=== PATIENT | female | born 1960 | race Caucasian/White ===

== ENCOUNTER → 2017-08-16 | Outpatient (CLI) | payer BC ==
--- NOTE | 2017-08-19 11:49 | MM ---
Reason for exam: screening (asymptomatic). Last mammogram was performed 2 years and 9 months ago. History: Patient is nulliparous. Family history of breast cancer in maternal grandmother. Physical Findings: A clinical breast exam by your physician is recommended on an annual basis and results should be correlated with mammographic findings. MG Screening Mammo w CAD Bilateral CC and MLO view(s) were taken. Prior study comparison: November 05, 2014, bilateral MG screening mammo w CAD. September 03, 2012, mammogram, performed at [facility]. The breast tissue is heterogeneously dense. This may lower the sensitivity of mammography. There is chronic nodularity in the left breast. There is no discrete abnormality. No significant changes when compared with prior studies. ASSESSMENT: Benign, BI-RAD 2 RECOMMENDATION: Routine screening mammogram of both breasts in 1 year.
== END | disposition home or self-care (01) ==
LOC: RADMAMWWP 10:16
PROVIDERS: ATTEND Family Medicine
DX: Z12.31 Encounter for screening mammogram for malignant neoplasm of breast (principal)
CPT/HCPCS: 77067

== ENCOUNTER → 2018-07-24 | Outpatient (CLI) | payer BC ==
--- NOTE | 2018-07-24 21:50 | MR ---
EXAMINATION TYPE: MR thoracic spine wo con DATE OF EXAM: 07/24/2018 COMPARISON: NONE HISTORY: lower back/thoracic pain x3 months TECHNIQUE: Multiplanar, multisequence imaging of thoracic spine is performed without contrast FINDINGS: Spinal cord shows normal course, caliber, and signal as it courses the thoracic spine. Alex tebral body heights and alignment are satisfactory. Posterior disc herniations are noted T3-T4 throug h the T11-T12 level on sagittal images effacing anterior thecal sac most prominent at T6-T7, T7-T8, a nd T10-T11 levels. Bone marrow signal intensity is preserved. There is mild multilevel anterior spurr ing seen. Review of the axial images shows no additional suspicious posterior disc herniation in the upper thor acic spine. Eccentric left paracentral disc protrusion T4-T5 level is confirmed on axial image 9 effacing the ant erolateral thecal sac. Prominent bilobed paracentral disc protrusion effaces bilateral anterolateral thecal sac axial image 17 at the T7-T8 level. Most prominent right paracentral/foraminal disc protrusion effaces the ventral thecal sac at T10-T11 level on axial image 8 and causes moderate right-sided neural foraminal narrowing at this level. Left foraminal disc herniation also seen causing mild left-sided neural foraminal narrowing. Axial images at T11-T12 level show mild facet degenerative changes bilaterally. Note is made of dependent 1.5 cm gallstone in gallbladder axial image 3. No suspicious incidental fin dings identified in visualized thorax. IMPRESSION: Multilevel posterior disc herniations with most prominent disc herniation noted T10-T11 l evel.
== END | disposition home or self-care (01) ==
LOC: RADMRIMAIN 19:30
PROVIDERS: ATTEND Nurse Practitioner Family
DX: M51.24 Other intervertebral disc displacement, thoracic region (principal)
CPT/HCPCS: 72146

== ENCOUNTER → 2018-07-28 | Outpatient (CLI) | payer BC ==
--- NOTE | 2018-07-28 09:11 | MR ---
EXAMINATION TYPE: MR lumbar spine wo con DATE OF EXAM: 07/28/2018 COMPARISON: 07/24/2018 MRI of the thoracic spine HISTORY: Low back pain TECHNIQUE: Multiplanar, multisequence images of the lumbar spine were acquired. FINDINGS: The lumbar spine vertebral bodies maintain normal vertebral body heights and alignment. The re is a very mild levoscoliotic curvature of the lumbar spine. Sacral nerve root Tarlov cysts are inc identally seen. Conus medullaris is unremarkable terminating at T2. There is a mild retrolisthesis of L5 on S1 and grade 1 anterolisthesis of L4 on L5. Multilevel disc desiccation is identified. Pulsation artifact from the abdominal aorta is seen overlying the right mid kidney. Cholelithiasis is incidentally noted. Paraspinal muscles are unremarkable. L1-L2: There is a broad-based disc bulge without spinal canal stenosis nor neural foraminal narrowing . L2-L3: There is a large broad-based disc bulge and facet arthropathy resulting in mild to moderate bi lateral neural foraminal narrowing and mild spinal canal stenosis. L3-L4: There is a broad-based disc bulge with facet arthropathy resulting in mild bilateral neural fo raminal narrowing. No spinal canal stenosis. L4-L5: There is grade 1 anterolisthesis with disc uncovering and ligamentum flavum buckling in combin ation with facet arthropathy resulting in mild bilateral neural foraminal narrowing and moderate spin al canal stenosis. L5-S1: There is a very small central disc herniation superimposed upon a broad-based disc bulge that in combination with facet arthropathy results in moderate left and [id number] right neural fora yasmin narrowing and mild spinal canal stenosis. IMPRESSION: 1. Small central disc herniation at L5-S1 that in combination with degenerative changes create mild s madhu canal stenosis and neural foraminal narrowing as described above. 2. Grade 1 anterolisthesis of L4 on L5 with degenerative disc disease and ligamentum flavum buckling create moderate spinal canal stenosis at L4-L5. 3. Large broad-based disc bulge at L2-L3 contributing to mild to moderate bilateral neural foraminal narrowing and mild spinal canal stenosis. 4. Mild levoscoliosis of the lumbar spine.
== END ==
LOC: RADMRIMAIN 08:13
PROVIDERS: ATTEND Family Medicine
DX: M48.061 Spinal stenosis, lumbar region without neurogenic claudication (principal); M99.73 Connective tissue and disc stenosis of intervertebral foramina of lumbar region; M43.16 Spondylolisthesis, lumbar region; M51.27 Other intervertebral disc displacement, lumbosacral region; M51.36 Other intervertebral disc degeneration, lumbar region; M41.86 Other forms of scoliosis, lumbar region
CPT/HCPCS: 72148

== ENCOUNTER → 2018-08-18 | Outpatient (CLI) | payer BC ==
--- NOTE | 2018-08-23 11:31 | MM ---
Reason for exam: screening (asymptomatic). Last mammogram was performed 1 year ago. History: Patient is nulliparous. Family history of breast cancer in maternal grandmother. MG Screening Mammo w CAD Bilateral CC, MLO, and XCCL view(s) were taken. Prior study comparison: August 16, 2017, bilateral MG screening mammo w CAD. November 05, 2014, bilateral MG screening mammo w CAD. The breast tissue is heterogeneously dense. This may lower the sensitivity of mammography. Bilateral chronic nodularity. No discrete abnormality. ASSESSMENT: Negative, BI-RAD 1 RECOMMENDATION: Routine screening mammogram of both breasts in 1 year.
== END | disposition home or self-care (01) ==
LOC: RADMAMWWP 08:51
PROVIDERS: ATTEND Family Medicine
DX: Z12.31 Encounter for screening mammogram for malignant neoplasm of breast (principal)
CPT/HCPCS: 77067

== ENCOUNTER → 2019-02-17 | Outpatient (CLI) | payer BC ==
[2019-02-17 12:23] VITALS: BP 177/84; PULSE 106; RESP 18
--- NOTE | 2019-02-18 13:54 | P.PAINCN ---
History of Present Illness - Reason for Consult Consult date: 02/17/19 - History of Present Illness This is a 58-year-old female patient referred for low back pain radiating to left groin, left posterior thigh, front of left cedillo and top of left foot and occasionally to right buttock. Pain began in May 2018 when she was lifting a heavy object and twisting simultaneously. She felt a sharp pain at that time. Since then, the pain has been constant, it worsens throughout the day. She has not been to physical therapy, however does exercises on her own. She reports numbness and tingling in left foot, denies weakness. Pain is worse with walking, sitting, standing and better with laying down. Pain ranges from 2-10 out of 10. Current medications include gabapentin 300 mg 3 times a day, Flexeril at night and Robaxin twice a day. She is expressing some mild side effects from these medications in the form of fatigue. Patient also denies new-onset weakness, bowel/bladder incontinence, or any other signs or symptoms of cauda equina syndrome. There are no signs of acute intoxication, and no indications of medication diversion or overuse. She has not had injections in the past. In addition to above, 13-point review of systems is also negative for chest pain, shortness of breath, changes in vision, changes in hearing, new onset weakness, abdominal pain, diarrhea, extreme fatigue, malaise, fever, skin changes, homicidal or suicidal ideation, or bowel or bladder incontinence. Physical exam: Vital Signs: Reviewed in EMR GENERAL: Well appearing, in no acute distress PSYCH: Mood and affect is appropriate. Awake, alert, and oriented SKIN: Skin color, texture, turgor normal, no rashes or lesions HEENT: Normocephalic, atraumatic. EOM intact CV: No pedal edema RESP: Respirations are unlabored, no audible wheezing GI: Abdomen non-distended MUSCULOSKELETAL: Bilateral upper and lower extremity strength is normal and symmetric. No atrophy or tone abnormalities are noted. Lumbar spine: Straight leg raising in the sitting position is negative for rad icular pain. Tenderness to palpation over the lumbar spine and paraspinous muscles, left greater than right. Negative for pain with facet loading and back extension/rotation. Normal range of motion without pain reproduction Buttocks: No pain to palpation over the PSIS, Richard test is Patient does not present with any sacroiliac joint tenderness or any physical exam signs of sacroiliac arthropathy. Extremities: Peripheral joint ROM is full and pain free without obvious instability or laxity in all four extremities. No edema or skin discolorations noted. Gait: Gait is normal NEUR: Bilateral upper and lower extremity coordination and muscle stretch reflexes are physiologic and symmetric. Negative clonus. Loss of sensation to light touch noted over left foot. Cranial nerves are grossly intact. Imaging: MRI thoracic spine done on 07/24/2018 at [facility] shows multilevel posterior disc herniations with most prominent disc herniation at T10-11 MRI lumbar spine done on 07/28/2018 at [facility] shows multilevel disc bulges resulting in mild to moderate spinal canal stenosis at multiple levels as well as neural foraminal stenosis worst at L2-L3, L5-S1. At L5-S1 neurof oraminal stenosis is worse on the left side. Assessment: 1. Lumbar radiculopathy 2. Lumbar degenerative disc disease 3. Lumbar spondylosis without myelopathy Plan: 1. Explanation: Opioid and psychological risk scores were reviewed. Diagnoses, prognoses, and multiple treatment options including but not limited to physical therapy, interventional therapies, adjuvant medical therapies, narcotic medication therapies, and surgery were discussed with the patient and all questions were answered to the patient's satisfaction. 2. Opioid agreement: None 3. Counseling: The patient was counseled extensively on BODY MASS INDEX, EXERCISE. Specifically, the patient was instructed regarding the importance of weight control, and exercise in the context of both chronic pain and overall health. 4. Procedures: We'll schedule left sided transforaminal epidural steroid injection at L2-3 and L5-S1. 5. Consultations: None 6. Investigations: MRI T and L-spine reviewed 7. Medications: Continue with medications prescribed by PCP 8. Disposition: For procedure Past Medical History Past Medical History: Asthma, GERD/Reflux, Hypertension, Osteoarthritis (OA), Sleep Apnea/CPAP/BIPAP Additional Past Medical History / Comment(s): uses c-pap machine, back pain that radiates to both legs and left foot. History of Any Multi-Drug Resistant Organisms: None Reported Past Surgical History: Hysterectomy, Orthopedic Surgery, Tonsillectomy Additional Past Surgical History / Comment(s): Edgard carpal tunnel , radial surgery edgard, right ulna, right rotator cuff., left knee meniscus. Past Anesthesia/Blood Transfusion Reactions: Postoperative Nausea & Vomiting (PONV) Past Psychological History: Anxiety, Depression Smoking Status: Former smoker Past Alcohol Use History: Occasional Additional Past Alcohol Use History / Comment(s): quit 3 months ago , smoked for on and off since 20 yrs old, quit for 10 years. Past Drug Use History: None Reported - Past Family History Mother Family Medical History: Cancer Additional Family Medical History / Comment(s): esophageal cancer Medications and Allergies Home Medications Medication Instructions Recorded Confirmed Type Losartan Potassium 100 mg PO DAILY 11/19/14 02/17/19 History Magnesium Oxide [Mag-Ox] 250 mg PO BID 11/19/14 02/17/19 History Montelukast [Singulair] 10 mg PO HS 11/19/14 02/17/19 History Albuterol Inhaler [Ventolin Hfa 1 - 2 puff INHALATION RT-Q6H PRN 02/16/19 02/17/19 History Inhaler] Cholecalciferol (Vitamin D3) 2,000 unit PO DAILY 02/16/19 02/17/19 History [Vitamin D3] Cyclobenzaprine [Flexeril] 10 mg PO HS 02/16/19 02/17/19 History DULoxetine HCL [Cymbalta] 30 mg PO BID 02/16/19 02/17/19 History Gabapentin [Neurontin] 300 mg PO TID 02/16/19 02/17/19 History Methocarbamol [Robaxin] 750 mg PO BID 02/16/19 02/17/19 History Multivitamins, Thera [Multivitamin 1 tab PO DAILY 02/16/19 02/17/19 History (formulary)] Naproxen Sodium [Aleve] 440 mg PO BID PRN 02/16/19 02/17/19 History Symbicort Inhaler 2 puff INHALATION BID 02/16/19 02/17/19 History Allergies Allergy/AdvReac Type Severity Reaction Status Date / Time nickel Allergy Severe SORES- Verified 02/16/19 13:56 TURN SKIN RAW lisinopril Allergy Unknown Cough Verified 02/16/19 13:56 PQRS Measure Charge Sheet Measure #130: Documentation of Current Meds in Medical Chart: Patient's medications documented in chart Measure #226: Tobacco Use: Screen & Cessation Intervention: Pt not a tobacco user Measure #111: Pneumonia Vaccination: Pneumococcal vaccine administered or previously received Measure #47: Advance Care Plan: Advance care planning discussed & documented, pt chose/unable to give Measure #412: Opioid Treatment Agreement: No documentation of signed opioid treatment agreement Measure #317: Preventitive Care & Scrn High Bld Press & F/U: Pre-hypertensive or hypertensive BP documented, pt will f/u with PCP Measure #128: Body Mass Index (BMI) Screening & Follow-up: BMI documented ABOVE normal parameters - f/u documented Measure #131: Pain Assessment & Follow-up: Pain positive & plan documented, Follow-up scheduled Measure #431: Unhealthy Alcohol Use Preventative Care & Scrn: Patient not identified as an unhealthy alcohol user PQRS Narrative: Smoking Status Former smoker Blood Pressure 177/84 Pain Intensity [Back] 6 Scale Used Numeric (1 - 10) Hx Alcohol Use (MH) No Home Medications: Ambulatory Orders Losartan Potassium 100 mg PO DAILY 11/19/14 Magnesium Oxide [Mag-Ox] 250 mg PO BID 11/19/14 Montelukast [Singulair] 10 mg PO HS 11/19/14 Albuterol Inhaler [Ventolin Hfa Inhaler] 1 - 2 puff INHALATION RT-Q6H PRN 02/16/19 Cholecalciferol (Vitamin D3) [Vitamin D3] 2,000 unit PO DAILY 02/16/19 Cyclobenzaprine [Flexeril] 10 mg PO HS 02/16/19 DULoxetine HCL [Cymbalta] 30 mg PO BID 02/16/19 Gabapentin [Neurontin] 300 mg PO TID 02/16/19 Methocarbamol [Robaxin] 750 mg PO BID 02/16/19 Multivitamins, Thera [Multivitamin (formulary)] 1 tab PO DAILY 02/16/19 Naproxen Sodium [Aleve] 440 mg PO BID PRN 02/16/19 Symbicort Inhaler 2 puff INHALATION BID 02/16/19
== END | disposition home or self-care (01) ==
LOC: PNWHC3 11:54
PROVIDERS: ATTEND Anesthesiology
DX: M51.16 Intervertebral disc disorders with radiculopathy, lumbar region (principal); M47.26 Other spondylosis with radiculopathy, lumbar region; K21.9 Gastro-esophageal reflux disease without esophagitis; J45.909 Unspecified asthma, uncomplicated; I10 Essential (primary) hypertension; M19.90 Unspecified osteoarthritis, unspecified site; Z87.891 Personal history of nicotine dependence; Z79.51 Long term (current) use of inhaled steroids; Z79.899 Other long term (current) drug therapy; Z88.8 Allergy status to other drugs, medicaments and biological substances
CPT/HCPCS: 99211

== ENCOUNTER 2019-03-16 05:57 | Day surgery (SDC) | payer BC ==
[2019-03-12 09:22] VITALS: BMI 41.5
[~2019-03-16 05:57] MED LIST: LACTATED RINGERS 1,000 ML IV SCH
[2019-03-16 06:24] VITALS: TEMP 97.5
[2019-03-16] MEDS ORDERED: LIDOCAINE 1% 20 ML VIAL (10MG/ML) FOR IV START INTRADERMA ONE (06:30)
--- NOTE | 2019-03-16 07:18 | P.PCN ---
Date of Procedure: 03/16/19 Procedure(s) Performed: DESCRIPTION OF PROCEDURE(S): PREOPERATIVE DIAGNOSIS: Lumbar radicular pain POSTOPERATIVE DIAGNOSIS: Lumbar radicular pain PROCEDURE 1. Transforaminal epidural steroid injection under fluoroscopic guidance left L2-L3 2. Lumbar epidurogram ANESTHESIA: Local with 1% lidocaine 3 ml ; moderate sedation with Versed 1 mg and fentanyl 50 micrograms. PROCEDURE INDICATION: The patient with low back pain and radicular symptoms unresponsive to conservative treatment. PROCEDURE DESCRIPTION / TECHNIQUE: The patient was seen and identified in the preoperative area. Risks, benefits, complications, and alternatives were discussed with the patient. The patient agreed to proceed with the procedure and signed the consent. IV was started, and vital signs were stable. Patient was taken to the OR and time out was completed. The patient was placed in the prone position on procedure table and a pillow was placed under the abdomen to reduce lumbar lordosis. The lumbosacral area was prepped and draped in the usual sterile fashion. Vital signs were closely monitored during the procedure. Conscious sedation was used. Using oblique fluoroscopy, the chin of the ``Long dog and the skin and deeper tissues just below was localized with 1% lidocaine. Subsequently, a 22- gauge 5-inch spinal needle was advanced under a tunneled view fluoroscopic guidance just underneath the chin of the ``Long dog . Under lateral fluoroscopy, the needle was then advanced to the posterior border of the foramen. After negative aspiration of CSF and blood and with no paresthesias, 1 mL of Omnipaque-240 contrast dye was injected and there was no evidence of intravascular injection. The injectate solution was then delivered containing 10 mg of dexamethasone and 1 cc of 1% PF. The needle was withdrawn intact. At the end of the procedure, skin was cleansed, and bandages were applied. COMPLICATIONS: None COMMENTS: DISPOSITION / PLANS: The patient was placed in a supine position and transferred to the recovery area in a stable condition for observation. There was no evide nce of lower extremity motor or sensory deficit after the procedure. Patient was discharged from the recovery room after meeting discharge criteria. Home discharge instructions were given to the patient by the staff.
[2019-03-16] MEDS ORDERED: IV FLUID CONTINUATION 1,000 ML IV ONE (07:19)
[2019-03-16 07:29] VITALS: RESP 16
[2019-03-16 07:35] VITALS: BP 129/82; PULSE 91
--- NOTE | 2019-03-16 08:09 | FL ---
Fluoroscopy HISTORY: Pain 13 seconds fluoroscopy time supplied to the referring clinician. 4 intraoperative C-arm images docum ent the procedure. See dictated report from anesthesia.
== END 2019-03-16 07:53 | disposition home or self-care (01) ==
LOC: ORPAIN 05:57
PROVIDERS: ATTEND Student in an Organized Health Care Education/Training Program
DX: M54.16 Radiculopathy, lumbar region (principal); R19.4 Change in bowel habit; Z88.8 Allergy status to other drugs, medicaments and biological substances
CPT/HCPCS: 64483; J2250; J1100; J3010

== ENCOUNTER 2019-04-06 09:09 | Day surgery (SDC) | payer BC ==
[2019-04-03 09:18] VITALS: BMI 41.5
[2019-04-06 10:15] VITALS: TEMP 97.8
[2019-04-06] MEDS ORDERED: LIDOCAINE 1% 20 ML VIAL (10MG/ML) FOR IV START INTRADERMA ONE (10:19)
[2019-04-06] MEDS ORDERED: IV FLUID CONTINUATION 850 ML IV ONE (11:20)
--- NOTE | 2019-04-06 11:21 | P.PCN ---
Date of Procedure: 04/06/19 Procedure(s) Performed: PREOPERATIVE DIAGNOSIS: Lumbar radicular pain POSTOPERATIVE DIAGNOSIS: Lumbar radicular pain PROCEDURE 1. Transforaminal epidural steroid injection under fluoroscopic guidance left L2-L3 2. Lumbar epidurogram ANESTHESIA: Local with 1% lidocaine 3 ml ; moderate sedation with Versed 1 mg and fentanyl 50 micrograms. PROCEDURE INDICATION: The patient with low back pain and radicular symptoms unresponsive to conservative treatment. PROCEDURE DESCRIPTION / TECHNIQUE: The patient was seen and identified in the preoperative area. Risks, benefits, complications, and alternatives were discussed with the patient. The patient agreed to proceed with the procedure and signed the consent. IV was started, and vital signs were stable. Patient was taken to the OR and time out was completed. The patient was placed in the prone position on procedure table and a pillow was placed under the abdomen to reduce lumbar lordosis. The lumbosacral area was prepped and draped in the usual sterile fashion. Vital signs were closely monitored during the procedure. Conscious sedation was used. Using oblique fluoroscopy, the chin of the ``Long dog and the skin and deeper tissues just below was localized with 1% lidocaine. Subsequently, a 22- gauge 5-inch spinal needle was advanced under a tunneled view fluoroscopic guidance just underneath the chin of the ``Long dog . Under lateral fluoroscopy, the needle was then advanced to the posterior border of the foramen. After negative aspiration of CSF and blood and with no paresthesias, 1 mL of Omnipaque-240 contrast dye was injected and there was no evidence of intravascular injection. The injectate solution was then delivered containing 80 mg Depo-Medrol , and 1 cc of 1% PF. The needle was withdrawn intact. At the end of the procedure, skin was cleansed, and bandages were applied. COMPLICATIONS: None COMMENTS: DISPOSITION / PLANS: The patient was placed in a supine position and transferred to the recovery area in a stable condition for observation. There was no evidence of lower extremity motor or sensory deficit after the procedure. Patient was discharged from the recovery room after meeting discharge criteria. Home discharge instructions were given to the patient by the staff.
[2019-04-06 11:36] VITALS: RESP 18
[2019-04-06 11:37] VITALS: BP 151/76; PULSE 89
--- NOTE | 2019-04-06 11:37 | FL ---
EXAMINATION TYPE: FL guided pain mgmt statistic DATE OF EXAM: 04/06/2019 HISTORY: Flouroscopy time 5 seconds of fluoroscopy provided. IMPRESSION: 1. Fluoroscopy time.
== END 2019-04-06 11:50 | disposition home or self-care (01) ==
LOC: ORPAIN 09:09
PROVIDERS: ATTEND Specialist
DX: M51.16 Intervertebral disc disorders with radiculopathy, lumbar region (principal); Z88.8 Allergy status to other drugs, medicaments and biological substances; Z91.048 Other nonmedicinal substance allergy status; Z90.710 Acquired absence of both cervix and uterus
CPT/HCPCS: 81025; 64483; J2250; J1030; J3010; Q9966

== ENCOUNTER → 2019-04-20 | Outpatient (CLI) | payer BC ==
[2019-04-20 13:00] VITALS: BP 162/86; RESP 18
--- NOTE | 2019-04-20 13:31 | P.PAINPG ---
Subjective Progress Note Date: 04/20/19 This is a follow-up visit for this 58 years old female with a chronic history of severe low back pain with radiation to the left lower extremity , she is very close with lumbar radiculopathy and lumbar degenerative disc disease and lumbar spondylosis, recently we have done a left-sided transforaminal epidural steroid injection L2-3, and that helped her left lower extremity pain and she continued to have low back pain which is increased with any activity, she denies any motor or sensory deficit she denies any fever or night sweats and she continued to use, Neurontin 400 mg 3 times a day Robaxin 750 mg twice a, she denies any side effects from the medication, as any excessive drowsiness or sleepiness and she is getting prescription refills from her primary care Objective - Vital Signs Vital signs: Vital Signs Temp Pulse Resp 18 04/20/19 12:53 BP 162/86 04/20/19 12:53 Pulse Ox 94 L 04/20/19 12:53 - Exam Physical Examinations : -Constitutiona : Cooperative , not in acute distress . -HEENT : nech : supple , no Lymphadenopathy , normal thyroid size . eyes : no ptosis , no icterus, no photophobia . - neurologic : Cranial nerve II to XII intact , no focal neurological deffecit . -psychatric : alert , oriented X 3 , appropriate affect , intact judgment and insight . -Lymphatic : no Lymphadenopathy . - musculoskeltal : Lumber spine moter stegnth lower extremities ,thigh and legs 5/5 Right side , 5/5 Left side deep tendon reflexes : normal Knee Jerk , normal ankle Jerk positive lumber facet Loading Test Range of motion of the lumbar spine Flexion 30 degrees, extension 10 degrees strait leg raising test = negative bilaterally Fabere test = negative bilaterally mild tenderness over the Sacroiliac joint on the R and L sides MRI of the lumbar spine done 07/24/2018 at the [facility] showed multilevel lumbar degenerative disc disease and L2 to S1 lumbar facet arthropathy and foraminal stenosis Assessment and Plan Plan: Assessment and plan=1-lumbar radiculopathy 2-lumbar spondylosis with lumbar facet arthropathy without radiculopathy. 3-lumbar degenerative disc disease. Patient had good pain relief in the left lower extremity after transforaminal epidural steroid injection, currently she is complaining of severe low back pain in the lumbar area which is mostly secondary to facetogenic component, patient will be good candidate for diagnostic medial branch block lumbar area L2 , L3, L4, L5 , (2 target the facet joint at L3-4/L4 5/L5-S1 ) , and benefits positive then we will proceed with RFA Time with Patient: Less than 30 PQRS Measure Charge Sheet Measure #130: Documentation of Current Meds in Medical Chart: Patient's medications documented in chart Measure #226: Tobacco Use: Screen & Cessation Intervention: Pt screened for tobacco use AND intervention given Measure #111: Pneumonia Vaccination: Pneumococcal vaccine administered or previ ously received Measure #47: Advance Care Plan: Advance care planning discussed & documented, pt chose/unable to give Measure #412: Opioid Treatment Agreement: No documentation of signed opioid treatment agreement Measure #408: Opioid Therapy Follow-up Evaluation: Patient had NO f/u eval minimum every 3 months during opioid therapy Measure #317: Preventitive Care & Scrn High Bld Press & F/U: Pre-hypertensive or hypertensive BP documented, pt will f/u with PCP Measure #128: Body Mass Index (BMI) Screening & Follow-up: BMI documented ABOVE normal parameters - f/u documented Measure #131: Pain Assessment & Follow-up: Pain positive & plan documented, Follow-up scheduled Measure #431: Unhealthy Alcohol Use Preventative Care & Scrn: Patient not identified as an unhealthy alcohol user PQRS Narrative: Smoking Status Former smoker Blood Pressure 162/86 Pain Intensity [Lower Back] 5 Scale Used Numeric (1 - 10) Hx Alcohol Use (MH) Yes Home Medications: Ambulatory Orders Losartan Potassium 100 mg PO DAILY 11/19/14 Montelukast [Singulair] 10 mg PO HS 11/19/14 Albuterol Inhaler [Ventolin Hfa Inhaler] 1 - 2 puff INHALATION Q6HR PRN 02/16/19 Budesonide/Formoterol Fumarate [Symbicort 80-4.5 Mcg Inhaler] 1 puff INHALATION BID 02/16/19 Cholecalciferol (Vitamin D3) [Vitamin D3] 2,000 unit PO DAILY 02/16/19 Cyclobenzaprine [Flexeril] 10 mg PO HS 02/16/19 DULoxetine HCL [Cymbalta] 30 mg PO BID 02/16/19 Methocarbamol [Robaxin] 750 mg PO BID 02/16/19 Multivitamins, Thera [Multivitamin (formulary)] 1 tab PO DAILY 02/16/19 Acetaminophen [Tylenol] 650 mg PO QID PRN 04/03/19 Gabapentin [Neurontin] 400 mg PO TID 04/03/19 Magnesium Tartrate 100 mg PO BID 04/03/19 Controlled Substance Measures - Controlled Substance Measures Is patient prescribed a controlled substance at discharge?: No
== END ==
LOC: PNWHC3 11:44
PROVIDERS: ATTEND Specialist
DX: M51.16 Intervertebral disc disorders with radiculopathy, lumbar region (principal); M47.26 Other spondylosis with radiculopathy, lumbar region; M46.96 Unspecified inflammatory spondylopathy, lumbar region; Z87.891 Personal history of nicotine dependence; Z79.899 Other long term (current) drug therapy
CPT/HCPCS: 99211

== ENCOUNTER 2019-05-07 05:59 | Day surgery (SDC) | payer BC ==
[2019-05-05 15:09] VITALS: BMI 43.2
[2019-05-07] MEDS ORDERED: LIDOCAINE 1% 20 ML VIAL (10MG/ML) FOR IV START INTRADERMA ONE (06:28)
[2019-05-07 06:35] VITALS: RESP 16; TEMP 97.9
--- NOTE | 2019-05-07 07:31 | P.PCN ---
Date of Procedure: 05/07/19 Procedure(s) Performed: PREOPERATIVE DIAGNOSIS : Lumbar spondylosis with Facet Arthropathy without myelopathy POSTOPERATIVE DIAGNOSIS: same PROCEDURE: Diagnostic lumbar medial branch block with fluoroscopy at bilateral medial branch of L2, L3, L4, and dorsal rami of 5 ANESTHESIA: Local anesthetic; moderate sedation with 2 mg of midazolam Surgeon: Genesis Jewell MD PROCEDURE INDICATION: By spondylosis PROCEDURE DESCRIPTION: The patient was seen and identified in the preop holding area , risks and benefits and possible complications of the procedure and alternative were discussed with the patient, and the patient agreed to proceed with the procedure and signed the consent IV was started and vital signs monitored during the procedure and fluoroscopy was used to maximize the benefit and accuracy of the needle placement, and sedation was given to decrease patient anxiety, patient was taken to the procedure room and placed in prone position vital signs monitored in the back prepped. Under strict sterile technique using a right oblique fluoroscopy ,the junction of the transverse process and the superior articulating process of the bilateral L2-L3, L3- 4 , L4- 5, and L5-S1 vertebra which corresponding to the fluoroscopy image of the eye of the Long dog on the block side for the medial branches and subsequently , after local infiltration of skin and subcutaneous tissues with lidocaine 1% one mL at each level ,then one 25-gauge Quincke-type needles was placed at the junction of the base of the transverse process and the superior articular process at the appropriate level, and the needle was advanced until the periosteum contacted, needle placement confirmed with AP and oblique view and after appropriate needle placement confirmed, and after negative aspiration, 0.5 mL of Ropivicaine 0.5% was injected at each level and the needle subsequently removed. Images were saved to radiology. At the end of the procedure and the needles removed and a bandage applied after the skin was cleaned the cleaning solution patient taken to recovery room in stable condition and monitors in the recovery room for 20-30 minutes and discharged home in stable condition after discharge criteria met and patient will have repeat diagnostic medial branch block, if she had good relief with this one. EBL: Minimal COMPLICATION: None.
[2019-05-07] MEDS ORDERED: IV FLUID CONTINUATION 1,000 ML IV ONE (07:34)
[2019-05-07 07:44] VITALS: BP 128/71; PULSE 93
--- NOTE | 2019-05-07 08:48 | FL ---
EXAMINATION TYPE: FL guided pain mgmt statistic DATE OF EXAM: 05/07/2019 FLUOROSCOPY Fluoroscopy time of 17 seconds was used during pain management procedure. 6 image/s document/s the p rocedure.
== END 2019-05-07 08:00 | disposition home or self-care (01) ==
LOC: ORPAIN 05:59
PROVIDERS: ATTEND Student in an Organized Health Care Education/Training Program
DX: M47.26 Other spondylosis with radiculopathy, lumbar region (principal); M51.16 Intervertebral disc disorders with radiculopathy, lumbar region; M46.97 Unspecified inflammatory spondylopathy, lumbosacral region; M48.07 Spinal stenosis, lumbosacral region; Z79.899 Other long term (current) drug therapy; Z88.8 Allergy status to other drugs, medicaments and biological substances; Z91.048 Other nonmedicinal substance allergy status; Z90.710 Acquired absence of both cervix and uterus; Z87.891 Personal history of nicotine dependence
CPT/HCPCS: 64493; 64494; 64495; J2250; 99152

== ENCOUNTER → 2019-06-01 | Outpatient (CLI) | payer BC ==
--- NOTE | 2019-06-01 15:45 | MR ---
EXAMINATION TYPE: MR knee RT wo con DATE OF EXAM: 06/01/2019 COMPARISON: Right knee pain HISTORY: pain in unspecified knee, pain in rt knee TECHNIQUE: Multiplanar, multisequence imaging of the right knee is performed without IV contrast. FINDINGS: MEDIAL MENISCUS: There is a radial tear of the body of the medial meniscus and underlying bone marrow edema with full-thickness cartilaginous defect of the weightbearing surface of the medial compartmen t. The abnormal signal from the radial tear does extend into the anterior horn of the meniscus and po sterior horn with additional horizontal component suspected. The root of the meniscus is intact. Ther e is 5 mm of meniscal extrusion. LATERAL MENISCUS: Anterior and posterior horns are intact without tear. Slight increased signal is se en of the anterior and posterior horns indicative of myxoid degeneration. CRUCIATE LIGAMENTS: There is a partial thickness tear of the anterior cruciate ligament as there is s ignal alteration throughout and thickening of the fibers. Posterior cruciate ligament is intact. COLLATERAL LIGAMENTS: The medial collateral ligament and lateral collateral ligament complex are inta ct there is high signal seen superficial and deep to the medial collateral ligament. Medial collatera l ligament however appears intact. EXTENSOR MECHANISM: Visualized quadriceps and patellar tendons are intact. EFFUSION: Physiologic amount of suprapatellar joint effusion. POPLITEAL CYST: No popliteal/perez cyst. TRICOMPARTMENT SPACES: Protuberant tricompartmental osteophytes are seen. Subcortical cyst is present of the lateral femoral condyle. CARTILAGE: Full-thickness cartilaginous defect of the weightbearing surface of the medial femoral con dyle measuring 2.1 cm with opposing surface full-thickness defect of the tibial plateau measuring 1.5 cm. Underlying bone marrow edema is seen. Heterogenous signal throughout the lateral compartment car tilage is seen with partial-thickness defect of the posterior weightbearing surface measuring 0.4 cm. Diffusely heterogenous cartilage is seen in the patellofemoral compartment with focal fissure of the patellar apex. No underlying bone marrow edema. BONE MARROW SIGNAL: Loose joint body is seen anterior to the anterior cruciate ligament measuring 1 c m. OTHER: Nonspecific subcutaneous edema is present. IMPRESSION: 1. Complex tear of the medial meniscus with dominant radial component of the meniscal body and horizo ntal component also seen extending into the anterior and posterior horns. Associated 5 mm of meniscal extrusion. 2. Severe chondrosis with full-thickness cartilaginous defect of the weightbearing surface of the med ial femoral condyle (2.1 cm and opposing surface of the tibial plateau (1.5 cm) resulting in bone-on- bone articulation and underlying bone marrow edema of both the medial femoral condyle and medial tibi al plateau. Mild chondrosis within the lateral compartment and patellofemoral compartment. 3. Mid grade partial thickness tear of the anterior cruciate ligament. 4. Moderate tricompartmental arthropathy. 5. Findings suggesting low-grade MCL sprain and MCL bursitis. 6. 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
== END | disposition home or self-care (01) ==
LOC: RADMRIMAIN 11:05
PROVIDERS: ATTEND Nurse Practitioner Adult Health
DX: S83.231A Complex tear of medial meniscus, current injury, right knee, initial encounter (principal); S83.511A Sprain of anterior cruciate ligament of right knee, initial encounter; M17.11 Unilateral primary osteoarthritis, right knee

== ENCOUNTER → 2019-06-22 | Outpatient (CLI) | payer BC ==
[2019-06-22 13:55] VITALS: BP 186/84; PULSE 99; RESP 16
--- NOTE | 2019-06-22 14:23 | P.PAINPG ---
Subjective Progress Note Date: 06/22/19 This is a follow-up visit for this 59 years old female with a chronic history of severe low back pain she is diagnosed with with lumbar radiculopathy and lumbar degenerative disc disease and lumbar spondylosis, status post a classic medial branch block lumbar area bilaterally at the L2, L3, L4, L5, she reported that her pain was 5/10 before the block degrees to 1/10 after the block, and she gets similar results after the second diagnostic block , she denies any motor or sensory deficit she denies any fever or night sweats and she continued to use, Neurontin 400 mg 3 times a day Robaxin 750 mg twice a, she denies any side effects from the medication, as any excessive drowsiness or sleepiness and she is getting prescription refills from her primary care Objective - Vital Signs Vital signs: Vital Signs Temp Pulse 99 06/22/19 13:49 Resp 16 06/22/19 13:49 BP 186/84 06/22/19 13:49 Pulse Ox 94 L 06/22/19 13:49 - Exam -Constitutiona : Cooperative , not in acute distress . -HEENT : nech : supple , no Lymphadenopathy , normal thyroid size . eyes : no ptosis , no icterus, no p hotophobia . - neurologic : Cranial nerve II to XII intact , no focal neurological deffecit . -psychatric : alert , oriented X 3 , appropriate affect , intact judgment and insight . -Lymphatic : no Lymphadenopathy . - musculoskeltal : Lumber spine moter stegnth lower extremities ,thigh and legs 5/5 Right side , 5/5 Left side deep tendon reflexes : normal Knee Jerk , normal ankle Jerk positive lumber facet Loading Test Range of motion of the lumbar spine Flexion 30 degrees, extension 10 degrees strait leg raising test = negative bilaterally Fabere test = negative bilaterally mild tenderness over the Sacroiliac joint on the R and L sides MRI of the lumbar spine done 07/24/2018 at the [facility] showed multilevel lumbar degenerative disc disease and L2 to S1 lumbar facet arthropathy and foraminal stenosis Assessment and Plan Plan: Assessment and plan= lumbar radiculopathy. Lumbar degenerative disc disease. Lumbar spondylosis with lumbar facet arthropathy. Patient had good result after diagnostic medial branch block lumbar area x2 , she had significant improvement in her low back pain after The diagnostic block, pain dropped from 5/10- to 0-1/10 , for this is an she will be good candidate to have RFA of the medial branch Lumbar area she will be scheduled to have left side L2, L3, L4, L5 first then later on we will do the right side, patient should continue her medication as prescribed by her primary care Time with Patient: Less than 30 PQRS Measure Charge Sheet Measure #130: Documentation of Current Meds in Medical Chart: Patient's medications documented in chart Measure #226: Tobacco Use: Screen & Cessation Intervention: Pt not a tobacco user Measure #111: Pneumonia Vaccination: Pneumococcal vaccine administered or previously received Measure #47: Advance Care Plan: Advance care planning discussed & documented, pt chose/unable to give Measure #412: Opioid Treatment Agreement: No documentation of signed opioid treatment agreement Measure #408: Opioid Therapy Follow-up Evaluation: Patient had NO f/u eval minimum every 3 months during opioid therapy Measure #317: Preventitive Care & Scrn High Bld Press & F/U: Pre-hypertensive or hypertensive BP documented, pt will f/u with PCP Measure #128: Body Mass Index (BMI) Screening & Follow-up: BMI documented ABOVE normal parameters - f/u documented Measure #131: Pain Assessment & Follow-up: Pain positive & plan documented, Follow-up scheduled Measure #431: Unhealthy Alcohol Use Preventative Care & Scrn: Patient not identified as an unhealthy alcohol user PQRS Narrative: Smoking Status Former smoker Blood Pressure 186/84 Pain Intensity [Right Leg] 5 Pain Intensity [Left Buttock] 5 Pain Intensity [Left Leg] 5 Pain Intensity [Lower Back] 5 Scale Used Numeric (1 - 10) Hx Alcohol Use (MH) Yes Home Medications: Ambulatory Orders Losartan Potassium 100 mg PO DAILY 11/19/14 Montelukast [Singulair] 10 mg PO HS 11/19/14 Albuterol Inhaler [Ventolin Hfa Inhaler] 1 - 2 puff INHALATION Q6HR PRN 02/16/19 Budesonide/Formoterol Fumarate [Symbicort 80-4.5 Mcg Inhaler] 1 puff INHALATION BID 02/16/19 Cholecalciferol (Vitamin D3) [Vitamin D3] 2,000 unit PO DAILY 02/16/19 Cyclobenzaprine [Flexeril] 10 mg PO HS 02/16/19 DULoxetine HCL [Cymbalta] 30 mg PO BID 02/16/19 Methocarbamol [Robaxin] 750 mg PO BID 02/16/19 Multivitamins, Thera [Multivitamin (formulary)] 1 tab PO DAILY 02/16/19 Gabapentin [Neurontin] 400 mg PO TID 04/03/19 Magnesium Tartrate 250 mg PO BID 04/03/19 Meloxicam 7.5 mg PO DAILY 06/22/19 Controlled Substance Measures - Controlled Substance Measures Is patient prescribed a controlled substance at discharge?: No
== END ==
LOC: PNWHC3 13:36
PROVIDERS: ATTEND Specialist
DX: M51.16 Intervertebral disc disorders with radiculopathy, lumbar region (principal); M47.26 Other spondylosis with radiculopathy, lumbar region; M46.96 Unspecified inflammatory spondylopathy, lumbar region; Z87.891 Personal history of nicotine dependence; Z79.899 Other long term (current) drug therapy; Z79.1 Long term (current) use of non-steroidal anti-inflammatories (NSAID)
CPT/HCPCS: 99211

== ENCOUNTER 2019-07-13 06:58 | Day surgery (SDC) | payer BC ==
[2019-07-09 15:40] VITALS: BMI 43.2
[2019-07-13 07:23] VITALS: RESP 20; TEMP 97.5
[2019-07-13] MEDS ORDERED: LIDOCAINE 1% 20 ML VIAL (10MG/ML) FOR IV START INTRADERMA ONE (07:30)
[2019-07-13] MEDS ORDERED: LACTATED RINGERS 1,000 ML IV ONE (08:57)
[2019-07-13 09:19] VITALS: BP 130/81; PULSE 86
--- NOTE | 2019-07-13 10:05 | FL ---
Fluoroscopy HISTORY: Pain 9 seconds fluoroscopy time supplied to the referring clinician. 6 intraoperative C-arm images docume nt the procedure. See dictated report from anesthesia.
--- NOTE | 2019-07-13 15:25 | P.PCN ---
Date of Procedure: 07/13/19 Procedure(s) Performed: PREOPERATIVE DIAGNOSIS: Lumbar Spondylosis POSTOPERATIVE DIAGNOSIS: Same PROCEDURES: Radiofrequency ablation of the L2, L3, L4, L5 medial branches with fluoroscopic guidance on the left side SURGEON: Vasu Covarrubias MD. ANESTHESIA: Lidocaine 1% 5 mL, Moderate sedation with intravenous Versed and fentanyl, sedation time 21 minutes EBL: Minimal Fluoroscopy was used for the procedure and images were saved in the radiology portion of the chart. PROCEDURE INDICATION: The patient with low back pain secondary to lumbar facet arthropathy who had more than 50% relief of pain with previous diagnostic lumbar medial branch block X2. PROCEDURE DESCRIPTION / TECHNIQUE: The patient was seen and identified in the preoperative area. Risks, benefits, complications, including but not limited to risk of infection ,bleeding , allergic reactions to the medications and incomplete pain relief , and alternatives were discussed with the patient, the patient agreed to proceed with the procedure and signed the consent. IV was started. The operative site was marked. Patient was taken to the OR and time out was completed. The patient was placed in the prone position on the procedure table. The lumbar area was prepped and draped in the usual sterile fashion. . Vital signs were closely monitored during the procedure .IV sedation was used during the procedure to decrease patients anxiety. Using AP and then oblique fluoroscopy, the "eye of the Long dog" corresponding to the connection between the superior and transverse articular processes of the L3, L4 and L5 as well as the sacral ala were identified, marked, and localized with 1% lidocaine. Subsequently, an 18 guage 150-mm radiofrequency cannula with a 10-mm active tip was advanced guided by fluoroscopy to the identified target at each site. Needle positioning was confirmed on AP, oblique and lateral fluoroscopy. Motor testing at 2.5 Hz was done with paraspinal muscle stimulation only, and no radicular symptoms down the legs. Then 1 mL of 4% lidocaine was injected in each site. Radiofrequency thermocoagulation at 80 degrees celsius for 90 seconds was then performed. [place] were removed. Sterile dressings were applied. COMPLICATIONS: No acute complications. DISPOSITION / PLANS: The patient was placed in a supine position and transferred to the recovery area in a stable condition for observation and was discharged from the recovery room after meeting discharge criteria. Home discharge instructions given to the patient by the staff. The patient will follow up in clinic in 4 weeks.
== END 2019-07-13 09:27 | disposition home or self-care (01) ==
LOC: ORPAIN 06:58
PROVIDERS: ATTEND Anesthesiology
DX: G89.29 Other chronic pain (principal); M47.26 Other spondylosis with radiculopathy, lumbar region; M51.16 Intervertebral disc disorders with radiculopathy, lumbar region; Z88.8 Allergy status to other drugs, medicaments and biological substances; Z91.048 Other nonmedicinal substance allergy status; Z87.891 Personal history of nicotine dependence; Z79.51 Long term (current) use of inhaled steroids; Z79.899 Other long term (current) drug therapy
CPT/HCPCS: 64635; 64636 ×2; J2250; J3010; 99152

== ENCOUNTER → 2020-01-19 | Outpatient (CLI) | payer BC ==
[2020-01-19 13:39] VITALS: BP 175/84; PULSE 98; RESP 20
--- NOTE | 2020-01-19 14:17 | P.PAINPG ---
Subjective Progress Note Date: 01/19/20 This is a follow-up visit for this 59 years old female with a chronic history of severe low back pain she is diagnosed with with lumbar radiculopathy and lumbar degenerative disc disease and lumbar spondylosis, status post Diagnostic medial branch block lumbar area bilaterally at the L2, L3, L4, L5, she reported that her pain was 5/10 before the block degrees to 1/10 after the block, and she gets similar results after the second diagnostic block , June 2019 and we have done RFA of the left second medial branch lumbar area, and she gets excellent pain relief, and if she is complaining of severe low back pain, mostly axial in nature and is bilaterally, she denies any motor or sensory deficit she denies any fever or night sweats and she continued to use, Neurontin 400 mg 3 times a day Robaxin 750 mg twice a, she denies any side effects from the medication, as any excessive drowsiness or sleepiness and she is getting prescription refills from her primary care Objective - Vital Signs Vital signs: Vital Signs Temp Pulse 98 01/19/20 13:35 Resp 20 01/19/20 13:35 BP 175/84 01/19/20 13:35 Pulse Ox 96 01/19/20 13:35 - Exam -Constitutiona : Cooperative , not in acute distress . -HEENT : nech : supple , no Lymphadenopathy , normal thyroid size . eyes : no ptosis , no icterus, no photophobia . - neurologic : Cranial nerve II to XII intact , no focal neurological deffecit . -psychatric : alert , oriented X 3 , appropriate affect , intact judgment and insight . -Lymphatic : no Lymphadenopathy . - musculoskeltal : Lumber spine moter stegnth lower extremities ,thigh and legs 5/5 Right side , 5/5 Left side deep tendon reflexes : normal Knee Jerk , normal ankle Jerk positive lumber facet Loading Test Range of motion of the lumbar spine Flexion 30 degrees, extension 10 degrees strait leg raising test = negative bilaterally Fabere test = negative bilaterally mild tenderness over the Sacroiliac joint on the R and L sides MRI of the lumbar spine done 07/24/2018 at the [facility] showed multilevel lumbar degenerative disc disease and L2 to S1 lumbar facet arthropathy and foraminal stenosis Assessment and Plan Plan: Assessment and plan= lumbar radiculopathy. Lumbar degenerative disc disease. Lumbar spondylosis with lumbar facet arthropathy. Patient had good result after diagnostic medial branch block lumbar area x2 , she had significant improvement in her low back pain after The diagnostic block, pain dropped from 5/10- to 0-1/10 , for this is an she will be good candidate to have RFA of the medial branch Lumbar area bilaterally at L2, L3, L4, L5 patient should continue her medications as prescribed by the primary PQRS Measure Charge Sheet Measure #130: Documentation of Current Meds in Medical Chart: Patient's medications documented in chart Measure #226: Tobacco Use: Screen & Cessation Intervention: Pt screened for tobacco use AND intervention given Measure #111: Pneumonia Vaccination: Pneumococcal vaccine administered or previously received Measure #47: Advance Care Plan: Advance care planning discussed & documented, pt chose/unable to give Measure #412: Opioid Treatment Agreement: No documentation of signed opioid treatment agreement Measure #408: Opioid Therapy Follow-up Evaluation: Patient had NO f/u eval minimum every 3 months during opioid therapy Measure #317: Preventitive Care & Scrn High Bld Press & F/U: Pre-hypertensive or hypertensive BP documented, pt will f/u with PCP Measure #128: Body Mass Index (BMI) Screening & Follow-up: BMI documented ABOVE normal parameters - f/u documented Measure #131: Pain Assessment & Follow-up: Pain positive & plan documented, Follow-up scheduled Measure #431: Unhealthy Alcohol Use Preventative Care & Scrn: Patient not identified as an unhealthy alcohol user PQRS Narrative: Smoking Status Former smoker Blood Pressure 175/84 Pain Intensity [Lower] 5 Scale Used Numeric (1 - 10) Hx Alcohol Use (MH) Yes Home Medications: Ambulatory Orders Losartan Potassium 100 mg PO DAILY 11/19/14 Montelukast [Singulair] 10 mg PO HS 11/19/14 Albuterol Inhaler (Mhu) [Ventolin Hfa Inhaler] 1 - 2 puff INHALATION Q6HR PRN 02/16/19 Budesonide/Formoterol Fumarate [Symbicort 80-4.5 Mcg Inhaler] 1 puff INHALATION BID 02/16/19 Cholecalciferol (Vitamin D3) [Vitamin D3] 2,000 unit PO DAILY 02/16/19 Cyclobenzaprine [Flexeril] 10 mg PO HS 02/16/19 DULoxetine HCL [Cymbalta] 90 mg PO HS 02/16/19 Multivitamins, Thera [Multivitamin (formulary)] 1 tab PO DAILY 02/16/19 Gabapentin [Neurontin] 600 mg PO TID 04/03/19 Magnesium Oxide [Mag-Ox] 250 mg PO BID 04/03/19 Meloxicam 15 mg PO DAILY 06/22/19 Hydrochlorothiazide 50 mg PO DAILY 01/14/20 amLODIPine [Norvasc] 10 mg PO DAILY 01/14/20 Controlled Substance Measures - Controlled Substance Measures Is patient prescribed a controlled substance at discharge?: No
== END | disposition home or self-care (01) ==
LOC: PNWHC3 12:57
PROVIDERS: ATTEND Specialist
DX: G89.29 Other chronic pain (principal); M51.16 Intervertebral disc disorders with radiculopathy, lumbar region; M47.26 Other spondylosis with radiculopathy, lumbar region; M46.96 Unspecified inflammatory spondylopathy, lumbar region; Z87.891 Personal history of nicotine dependence; Z79.1 Long term (current) use of non-steroidal anti-inflammatories (NSAID); Z79.899 Other long term (current) drug therapy
CPT/HCPCS: 99211

== ENCOUNTER → 2020-01-25 | Outpatient (CLI) | payer BC ==
--- NOTE | 2020-01-26 08:27 | MM ---
Reason for exam: screening (asymptomatic). Last mammogram was performed 1 year and 5 months ago. History: Patient is postmenopausal and is nulliparous. Family history of breast cancer in maternal grandmother. Took hormonal contraceptives for 6 months. Physical Findings: A clinical breast exam by your physician is recommended on an annual basis and results should be correlated with mammographic findings. MG Screening Mammo w CAD Bilateral CC and MLO view(s) were taken. Prior study comparison: August 18, 2018, bilateral MG screening mammo w CAD. August 16, 2017, bilateral MG screening mammo w CAD. There are scattered fibroglandular densities. There is no discrete abnormality. No significant changes when compared with prior studies. ASSESSMENT: Negative, BI-RAD 1 RECOMMENDATION: Routine screening mammogram of both breasts in 1 year.
== END | disposition home or self-care (01) ==
LOC: RADMAMWWP 07:20
PROVIDERS: ATTEND Family Medicine
DX: Z12.31 Encounter for screening mammogram for malignant neoplasm of breast (principal)
CPT/HCPCS: 77067

== ENCOUNTER → 2020-01-28 | Outpatient (CLI) | payer BC ==
[~2020-01-28] MED LIST changes: -LACTATED RINGERS 1,000 ML IV SCH; +REGADENOSON 0.4 MG/5 ML SYRINGE IV ONE
--- NOTE | 2020-01-28 14:22 | NM ---
EXAMINATION TYPE: NM stress lexiscan cardiolite DATE OF EXAM: 01/28/2020 COMPARISON: NONE HISTORY: Essential hypertension TECHNIQUE: After the intravenous administration of 10.1 mCi Tc 99m Sestamibi - Cardiolite resting SP ECT images acquired 45 minutes post injection. The patient received 0.4mg Lexiscan, 24.9 mCi Tc 99m Sestamibi - Stress images obtained [address] injection FINDINGS: Review of stress and rest SPECT images demonstrates decreased uptake along the lateral wall left vent ricle on stress as compared to rest images into the cardiac apex. Decreased uptake in the rest images only along the anteroseptal left ventricle is of questionable clinical significance and may be techn ical. Gated analysis shows normal wall motion with an estimated left ventricular ejection fraction of 57 %. IMPRESSION: Pharmacologically induced left ventricular myocardial ischemia. Report relayed to the office of Nurse Cuong telephonically at the time of interpretation of the exam.
--- NOTE | 2020-01-28 21:53 | EST ---
EXERCISE STRESS AGE: 59 SEX: Female HT: 5 feet 5 inches WT: 280 pounds PROTOCOL: Lexiscan Cardiolite STAGE: DURATION OF EXERCISE: HEART RATE REST: 81 BLOOD PRESSURE REST: 108/69 MAXIMUM HEART RATE ACHIEVED: 106 MAXIMUM BLOOD PRESSURE: 114/61 85% MPHR: 139 100% MPHR: 167 METS: INDICATIONS: Hypertension. Chest pain. CLINICAL INFORMATION: STRESS DATA: Heart rate is 81, pressure 105/69 mmHg. Baseline EKG showed sinus mechanism. The patient was given 0.4 mg of Lexiscan over 15 seconds per protocol. Max heart rate was 106 beats per minute and maximum pressure was 114/61 mmHg. Clinically the patient did not have any symptoms of chest pain or discomfort and the EKG did not show any significant ST or T-wave abnormalities concerning for ischemia. CONCLUSION: 1. Nondiagnostic electrocardiogram stress testing in response to Lexiscan. 2. Please follow up on the Cardiolite portion on separate report from Radiology Department. MMODL / IJN: [id number] /
--- NOTE | 2020-02-03 16:00 | ECHOF ---
Referral Reason:I10 essential hypertention MEASUREMENTS -------- HEIGHT: 165.1 cm WEIGHT: 127.0 kg BP: RVIDd: 3.3 cm (< 3.3) IVSd: 1.1 cm (0.6 - 1.1) LVIDd: 4.2 cm (3.9 - 5.3) LVPWd: 1.5 cm (0.6 - 1.1) IVSs: 1.5 cm LVIDs: 3.0 cm LVPWs: 1.8 cm LA Diam: 4.2 cm (2.7 - 3.8) LAESV Index (A-L): 30.38 ml/m Ao Diam: 2.7 cm (2.0 - 3.7) AV Cusp: 2.1 cm (1.5 - 2.6) LA Diam: 3.8 cm (2.7 - 3.8) MV E Osorio: 0.79 m/s MV DecT: 232 ms MV A Osorio: 1.07 m/s MV E/A Ratio: 0.74 RAP: 5.00 mmHg RVSP: 16.53 mmHg FINDINGS -------- Sinus rhythm. Morbid Obesity This was a techncally difficult study with suboptimal views, , Lumason utilized for enhancement of im ages. LV size, wall thickness and systolic function are normal, with an EF greater than 55%. The right ventricle is normal in size. The left atrium is mildly dilated. LA is midly dilated 29-33ml/m2. The right atrial size is normal. 5.0mg OF Lumason UTLIZED: 2 OR MORE WALL SEGMENTS NOT VISUALIZED. The aortic valve was not well visualized. Mild mitral annular calcification present. Mild mitral regurgitation is present. Mild tricuspid regurgitation present. Right ventricular systolic pressure is normal at < 35 mmHg. There is no evidence of pulmonary hypertension. The pulmonic valve was not well visualized. There is no pericardial effusion. CONCLUSIONS -------- 1. Sinus rhythm. 2. Morbid Obesity 3. This was a techncally difficult study with suboptimal views, , Lumason utilized for enhancement of images. 4. LV size, wall thickness and systolic function are normal, with an EF greater than 55%. 5. The right ventricle is normal in size. 6. The left atrium is mildly dilated. 7. LA is midly dilated 29-33ml/m2. 8. The right atrial size is normal. 9. 5.0mg OF Lumason UTLIZED: 2 OR MORE WALL SEGMENTS NOT VISUALIZED. 10. The aortic valve was not well visualized. 11. Mild mitral annular calcification present. 12. Mild mitral regurgitation is present. 13. Mild tricuspid regurgitation present. 14. Right ventricular systolic pressure is normal at < 35 mmHg. 15. There is no evidence of pulmonary hypertension. 16. The pulmonic valve was not well visualized. 17. There is no pericardial effusion. IT OPERATIONS ANALYST: Zainab Almonte RDCS
== END | disposition home or self-care (01) ==
LOC: RADNMMAIN 08:30
PROVIDERS: ATTEND Nurse Practitioner Adult Health
DX: I25.9 Chronic ischemic heart disease, unspecified (principal)
CPT/HCPCS: 93017; 93306; 78452; A9500; J2785; Q9950

== ENCOUNTER 2020-02-12 07:15 | Day surgery (SDC) | payer BC ==
[2020-02-10 14:40] VITALS: BMI 46.5
[~2020-02-12 07:15] MED LIST changes: +ALPRAZolam 0.25 MG TAB PO PRN; +ALPRAZolam 0.5 MG TAB PO PRN; +ASPIRIN 325 MG TAB PO STA; +NITROGLYCERIN SL TABS 0.4 MG TAB SUBLINGUAL PRN; -REGADENOSON 0.4 MG/5 ML SYRINGE IV ONE; +SODIUM CHLORIDE 0.9% 1,000 ML in EMPTY BAG 1 BAG IV ONE
[2020-02-12 08:01] LABS: Glucose,Whole Blood 98 mg/dL (75-99)
[2020-02-12 08:03] VITALS: TEMP 98.1
[2020-02-12 08:28] LABS: Basophils # (A) 0.1 k/uL (0-0.2); Basophils % (A) 1 %; Eosinophils # (A) 0.2 k/uL (0-0.7); Eosinophils % (A) 2 %; HCT 40.8 % (34.0-46.0); HGB 13.9 gm/dL (11.4-16.0); Lymphocytes # (A) 1.6 k/uL (1.0-4.8); Lymphocytes % (A) 17 %; MCH 31.4 pg (25.0-35.0); MCHC 34.1 g/dL (31.0-37.0); MCV 92.2 fL (80.0-100.0); Mean Platelet Volume 7.1; Monocytes # (A) 0.7 k/uL (0-1.0); Monocytes % (A) 8 %; Neutrophils # (A) 6.5 k/uL (1.3-7.7); Neutrophils % (A) 70 %; Platelet Count 251 k/uL (150-450); RBC 4.43 m/uL (3.80-5.40); RDW 14.4 % (11.5-15.5); WBC 9.4 k/uL (3.8-10.6)
[2020-02-12] MEDS ORDERED: LIDOCAINE 1% INJ 10MG/ML (20 ML MDV) ONE (08:28)
[2020-02-12 08:32] LABS: African American GFR (CKD) >90 (>60 ml/min/1.73 sqM); Anion Gap 5 mmol/L; Blood Urea Nitrogen 15 mg/dL (7-17); Carbon Dioxide 28 mmol/L (22-30); Chloride 104 mmol/L (98-107); Glucose 98 mg/dL (74-99); Non-African American GFR(CKD) >90 (>60 ml/min/1.73 sqM); Potassium 3.7 mmol/L (3.5-5.1); Sodium 137 mmol/L (137-145)
[2020-02-12] MEDS ORDERED: VERAPAMIL 2.5 MG/ML 2 ML AMP ONE (08:35)
[2020-02-12] MEDS ORDERED: HEPARIN SODIUM 1,000 UN/ML (10ML VL) ONE (08:36)
[2020-02-12] MEDS ORDERED: MIDAZOLAM 2 MG/2 ML VIAL IVP ONE (08:49)
[2020-02-12] MEDS ORDERED: LIDOCAINE 1% INJ 10MG/ML (20 ML MDV) SQ ONE (08:51)
[2020-02-12] MEDS: VERAPAMIL SYRINGE (5 MG/10 ML) INTRAARTER ONE ×2 (08:54→09:01)
[2020-02-12] MEDS ORDERED: HEPARIN SODIUM 1,000 UN/ML (10ML VL) IV ONE (08:55)
[2020-02-12] MEDS ORDERED: IOPAMIDOL-370 100ML BTL INJ ONE (09:01)
[2020-02-12] MEDS ORDERED: RX INFO: IV CONTRAST WAS GIVEN 1 EACH MISC MISCELLANE PRN (09:06)
[2020-02-12] MEDS ORDERED: SODIUM CHLORIDE 0.9% 1,000 ML IV SCH (09:15)
[2020-02-12 13:11] VITALS: BP 131/60; PULSE 77; RESP 16
--- NOTE | 2020-02-12 13:47 | CC ---
CARDIAC CATHETERIZATION REPORT DATE OF SERVICE: 02/12/2020 PERFORMING PHYSICIAN: Kwaku Martinez MD. PROCEDURE PERFORMED: 1. Selective right and left coronary angiogram. 2. Left heart catheterization. INDICATION: This is a 59-year-old female patient with hypertension, who was experiencing chest discomfort and underwent myocardial perfusion imaging stress test and that revealed reversible defect. Because of that, a heart catheterization was advised. APPROACH: Right radial artery. COMPLICATION: None. LEVEL OF SEDATION: Moderate with sedation length of 13 minutes. PROCEDURE DESCRIPTION: After obtaining an informed consent, the patient was brought to the cardiac pathology laboratory technologist. The right radial artery was cannulated using micropuncture technique. The micropuncture wire advanced easily and then I placed a 5-Scottish sheath at the right radial artery. After that, I did selective right and left coronary angiogram using JR4 and JL3.5 catheters. The left heart catheterization was performed using 5-Scottish pigtail catheter. The procedure was completed without any complication. CORONARY ANGIOGRAM: 1. The right coronary artery is a medium caliber vessel. It is a nondominant vessel and appeared to be angiographically normal. 2. The left main is angiographically normal and it bifurcates into LCX and LAD. 3. The LCX is a large caliber vessel, it is a dominant vessel. The LCX is angiographically normal in the midportion and gives rise into an OM1 which seems to be angiographically normal and distally bifurcates into PDA and PLV branches. Both appeared to be angiographically normal. 4. The LAD is a large caliber vessel. It is angiographically normal. The LAD appeared to be angiographically normal. In the proximal portion, it gives rise into a large diagonal branch which seems to be normal. HEMODYNAMICS: The LVEDP was 16 mmHg without significant gradient across aortic valve. CONCLUSION: 1. Normal coronary angiogram. 2. Normal left ventricular end-diastolic pressure. POSTPROCEDURE MANAGEMENT: Medical treatment. Follow up with the patient. MMODL / IJN: [id number] /
== END 2020-02-12 14:34 | disposition home or self-care (01) ==
LOC: CATHCVL 07:15
PROVIDERS: ATTEND Internal Medicine Interventional Cardiology
DX: I20.0 Unstable angina (principal); I10 Essential (primary) hypertension; G47.33 Obstructive sleep apnea (adult) (pediatric); E66.9 Obesity, unspecified; Z72.0 Tobacco use; Z79.899 Other long term (current) drug therapy; Z79.51 Long term (current) use of inhaled steroids; Z68.42 Body mass index [BMI] 45.0-49.9, adult; Z88.8 Allergy status to other drugs, medicaments and biological substances; Z91.048 Other nonmedicinal substance allergy status; Z82.49 Family history of ischemic heart disease and other diseases of the circulatory system
CPT/HCPCS: 93458; 80048; 85025; C1769; C1894; J2250; J2001; J1644; Q9967

== ENCOUNTER 2020-03-16 09:13 | Day surgery (SDC) | payer BC ==
[2020-03-11 13:08] VITALS: BMI 48.2
[~2020-03-16 09:13] MED LIST changes: -ALPRAZolam 0.25 MG TAB PO PRN; -ALPRAZolam 0.5 MG TAB PO PRN; -ASPIRIN 325 MG TAB PO STA; +LACTATED RINGERS 1,000 ML IV SCH; -NITROGLYCERIN SL TABS 0.4 MG TAB SUBLINGUAL PRN; -SODIUM CHLORIDE 0.9% 1,000 ML in EMPTY BAG 1 BAG IV ONE
[2020-03-16 10:23] VITALS: TEMP 98.3
[2020-03-16] MEDS ORDERED: LIDOCAINE 1% (10MG/ML) FOR IV START INTRADERMA ONE (10:42)
[2020-03-16] MEDS ORDERED: LIDOCAINE 1% INJ 10MG/ML (20 ML MDV) ONE (11:22)
[2020-03-16] MEDS ORDERED: PROPOFOL 10 MG/ML 20 ML VIAL IV ONE (11:22)
--- NOTE | 2020-03-16 11:32 | P.PCN ---
Date of Procedure: 03/16/20 Procedure(s) Performed: BRIEF HISTORY: Patient is a 59-year-old, pleasant, white female scheduled for an upper endoscopy as a part of evaluation of any history of GERD and family history of esophageal cancer diagnosed in her mother. She is maintained on Pepcid 20 mg daily PROCEDURE PERFORMED: Esophagogastroduodenoscopy with biopsy. PREOPERATIVE DIAGNOSIS: GERD and family history of esophageal cancer. IV sedation per anesthesia. PROCEDURE: After informed consent was obtained, the patient was brought into the endoscopy unit. IV sedation was administered by Anesthesia under continuous monitoring. Initially the Olympus GIF-140 video endoscope was inserted into the mouth. Esophagus intubated without any difficulty. It was gradually advanced into the stomach and duodenum and carefully examined. The bulb and the second part of the duodenum appeared normal. The scope at this time was withdrawn to the stomach, adequately insufflated with air, and upon careful examination, mucosa of the antrum, body, cardia and the fundus appeared normal. The scope was then withdrawn into the esophagus. The GE junction was located at 39 cm from the incisors. There were linear erosions and exudate from 30-40 cm from the incisors consistent with LA grade B reflux esophagitis. Biopsies were done from this area. The rest of esophagus appeared normal. Patient tolerated the procedure well. IMPRESSION: 1. Erosions and exudates noted in the distal esophagus extending from 30-40 cm from the incisors consistent with LA grade B reflux esophagitis. 2. No evidence of esophageal stricture. RECOMMENDATIONS: The findings of this examination were discussed with the patient as well as her family. She was advised to follow with the biopsy results. At this time I recommend stopping the Pepcid and start on Prilosec 20 mg daily and she was briefly educated about antireflux measures.
[2020-03-16 11:36] VITALS: RESP 16
[2020-03-16 11:48] VITALS: BP 127/72; PULSE 82
== END 2020-03-16 12:01 | disposition home or self-care (01) ==
LOC: ORWHC2ENDO 09:13
PROVIDERS: ATTEND Internal Medicine Gastroenterology
DX: K22.10 Ulcer of esophagus without bleeding (principal); K22.8 Other specified diseases of esophagus; K21.9 Gastro-esophageal reflux disease without esophagitis; I10 Essential (primary) hypertension; J45.909 Unspecified asthma, uncomplicated; G47.33 Obstructive sleep apnea (adult) (pediatric); M54.16 Radiculopathy, lumbar region; E66.01 Morbid (severe) obesity due to excess calories; Z68.42 Body mass index [BMI] 45.0-49.9, adult; Z88.8 Allergy status to other drugs, medicaments and biological substances; Z91.09 Other allergy status, other than to drugs and biological substances; Z99.89 Dependence on other enabling machines and devices; Z79.899 Other long term (current) drug therapy; Z79.84 Long term (current) use of oral hypoglycemic drugs; Z79.51 Long term (current) use of inhaled steroids; Z80.0 Family history of malignant neoplasm of digestive organs
CPT/HCPCS: 88305; 43239; J2001; J2704

== ENCOUNTER 2020-03-31 12:39 | Day surgery (SDC) | payer BC ==
[2020-03-29 10:12] VITALS: BMI 48.2
[2020-03-31 13:42] VITALS: TEMP 98.2
[2020-03-31] MEDS ORDERED: ROPIVACAINE 5MG/ML 20ML VIAL ONE (13:59)
[2020-03-31] MEDS ORDERED: MIDAZOLAM 2 MG/2 ML VIAL ONE (13:59)
[2020-03-31] MEDS ORDERED: methylPREDNISolone ACETATE 40 MG/ML 1 ML VIAL ONE (13:59)
[2020-03-31] MEDS ORDERED: fentaNYL (PF) 50 MCG/ML 2 ML AMP ONE (13:59)
--- NOTE | 2020-03-31 14:41 | P.PCN ---
Date of Procedure: 03/31/20 Procedure(s) Performed: PREOPERATIVE DIAGNOSIS: 1-Lumbar Spondylosis with Facet Arthropathy without myelopathy. 2- Lumber degenerative disc disease POSTOPERATIVE DIAGNOSIS: 1- Lumbar Spondylosis with Facet Arthropathy without myelopathy. 2- Lumber degenerative disc disease PROCEDURES : Bilateral Radiofrequency thermocoagulation, L2 , L3 , L4 , and L5 medial branch, with fluoroscopic guidance (fluoroscopy images available in the radiology department) ( to denervate the facet joint at L3-4 , L4-5 ,and L5-S1 levels bilaterally) ANESTHESIA: Moderate sedation with intravenous versed 2 mg and fentaneyl 100 mcg, and local infiltration with Ropivacaine 0.5 % . EBL: Minimal PROCEDURE INDICATION: The patient with low back pain secondary to lumbar facet arthropathy who had more than 50% relief of her pain with previous diagnostic lumbar medial branch block with bupivacaine. PROCEDURE DESCRIPTION / TECHNIQUE: The patient was seen and identified in the preoperative area. Risks, benefits, complications, including but not limited to risk of infection ,bleeding , allergic reactions to the medications and no complete pain releife , and alternatives were discussed with the patient, the patient agreed to proceed with the procedure and signed the consent. IV was started. Vital signs remained stable throughout the procedure. Patient was taken to the OR and time out was completed. The patient was placed in the prone position on the procedure table. The lumber area was prepped and draped in the usual sterile fashion. . Vital signs were closely monitored during the procedure .IV sedation was used during the procedure to decrease patients anxiety. Using AP and then oblique fluoroscopy, the ``eye of the Long dog corresponding to the connection between the superior and transverse articular processes of right L2 ,L3, L4, and L5 were identified, marked, and localized with 1% lidocaine. Subsequently, a 18 guage 150-mm radiofrequency cannula with a 10-mm active tip was advanced guided by fluoroscopy to each of the``eyes of the Long dog at right L2 ,L3, L4, and L5. Each site then underwent sensory testing at 50 Hz and 0 to 1 volt and motor testing at 2.5 Hz and 0 to 3 volt with local stimulation, but no radicular symptoms down the legs. Thereafter each sites underwent radiofrequency thermocoagulation at 80 degrees celsius for 90 seconds after injecting 0.5 ml of PF Ropivacaine 1ml, then after the thermocoagulation done , 1 ml of the block solution containing Depo-Medrol 40 mg and 4 ml of Ropivacaine 0.5% was injected at the right L2 ,L3 , L4 , and L5 , levels after negative aspiration of CSF and blood and with no paresthesias. Cannulas were retracted while injecting lidocaine 1% until the needle is out. The same procedure was repeated at the level of Left L2 ,L3, L4, and L5 levels. At the end of the procedure, the skin was cleansed and bandages were applied. COMPLICATIONS: No acute complications. DISPOSITION / PLANS: The patient was placed in a supine position and transferred to the recovery area in a stable condition for observation and was discharged from the recovery room after meeting discharge criteria. Home discharge instructions given to the patient by the staff. The patient was reexamined prior to discharge. The patient will schedule a follow up in the clinic in 2-4 weeks.
[2020-03-31] MEDS ORDERED: IV FLUID CONTINUATION 1,000 ML IV ONE (14:45)
[2020-03-31 15:01] VITALS: BP 130/72; PULSE 74; RESP 18
--- NOTE | 2020-03-31 15:22 | FL ---
Fluoroscopy HISTORY: Pain 39 seconds fluoroscopy time supplied to the referring clinician. 6 intraoperative C-arm images docum ent the procedure. See dictated report from anesthesia.
== END 2020-03-31 15:14 ==
LOC: ORPAIN 12:39
PROVIDERS: ATTEND Specialist
DX: M47.816 Spondylosis without myelopathy or radiculopathy, lumbar region (principal); M51.16 Intervertebral disc disorders with radiculopathy, lumbar region; Z90.710 Acquired absence of both cervix and uterus; Z91.09 Other allergy status, other than to drugs and biological substances; Z88.8 Allergy status to other drugs, medicaments and biological substances
CPT/HCPCS: 64635; 64636 ×2; J2250; J1030; J3010; J2795; 99152; 99153

== ENCOUNTER → 2020-04-27 | Outpatient (CLI) | payer BC ==
[2020-04-27 12:32] VITALS: BP 166/73; PULSE 97; RESP 16; TEMP 97.8
--- NOTE | 2020-04-27 12:56 | P.PN ---
Subjective Progress Note Date: 04/27/20 This is a follow-up visit for this 59 years old female ,with a chronic history of severe low back pain ,she is diagnosed with with lumbar radiculopathy ,and lumbar degenerative disc disease, and lumbar spondylosis, recently done RFA of the medial branch lumbar area, currently she is complaining of severe low back pain mainly on the left side and she has severe numbness and tingling sensation in the left lower extremity, the numbness and the pain is constant and increases with any activity, she denies any motor or sensory deficit she denies any fever or night sweats and she continued to use, Neurontin 400 mg 3 times a day Robaxin 750 mg twice a, she denies any side effects from the medication, as any excessive drowsiness or sleepiness and she is getting prescription refills from her primary care Objective - Vital Signs Vital signs: Vital Signs Temp 97.8 F 04/27/20 12:25 Pulse 97 04/27/20 12:25 Resp 16 04/27/20 12:25 BP 166/73 04/27/20 12:25 Pulse Ox 97 04/27/20 12:25 - Exam Physical Examinations : -Constitutiona : Cooperative , not in acute distress . -HEENT : nech : supple , no Lymphadenopathy , normal thyroid size . : eyes : no ptosis , no icterus, no photophobia . - neurologic : Cranial nerve II to XII intact , no focal neurological deffecit . -psychatric : alert , oriented X 3 , appropriate affect , intact judgment and insight . -Lymphatic : no Lymphadenopathy . - musculoskeltal : Lumber spine moter stegnth lower extremities ,thigh and legs 5/5 Right side , 5/5 Left side deep tendon reflexes : normal Knee Jerk , normal ankle Jerk lumber facet Loading Test =positive Right , positive Left Range of motion of the lumbar spine Flexion 30 degrees, extension 10 degrees strait leg raising test = negative bilaterally Fabere test= negative bilaterally Sever tenderness over the Sacroiliac joint on the Left sides Gaenslen test= positive left . Seated flexion test= positive Left MRI of the lumbar spine done 07/24/2018 at the [facility] showed multilevel lumbar degenerative disc disease and L2 to S1 lumbar facet arthropathy and foraminal stenosis . Assessment and Plan Plan: Assessment and plan=1-lumbar radiculopathy. 2-lumbar spondylosis with lumbar facet arthropathy without myelopathy. 3-left sacroiliitis. Patient continued to have severe pain , and low back area with radiation to the left lower extremity, she could benefit from Epidural steroid injection at L5-S1 left paramedian approach , and also she could benefit from left sacroiliac joint steroid injection If she continued to have pain after the procedure then we could refer patient for evaluation by a spine surgeon - PQRS measures = - Patient's medications are documented in the chart. -Tobacco use is negative and counseling.Given. -Patient's has not received pneumococcal vaccine. -Advanced care planning discussed, patient not eligible. -Opiate contract not signed. -Pain positive and follow-up visit/procedure is scheduled. -Patient's blood pressure measured [166/73 ] , and documented in the record ,and patient will follow up with the primary care. -Patient's weight was measured and body mass index [ 48 ] above the,within the normal limits and counseling was done. and patient instructed to follow-up with the primary care physician. -Patient was not identified as an unhealthy alcohol user Time with Patient: Less than 30
== END | disposition home or self-care (01) ==
LOC: PNWHC3 12:04
PROVIDERS: ATTEND Specialist
DX: M47.26 Other spondylosis with radiculopathy, lumbar region (principal); M46.96 Unspecified inflammatory spondylopathy, lumbar region; M46.1 Sacroiliitis, not elsewhere classified; Z79.899 Other long term (current) drug therapy; Z79.891 Long term (current) use of opiate analgesic
CPT/HCPCS: 99211

== ENCOUNTER 2020-05-19 07:04 | Day surgery (SDC) | payer BC ==
[2020-05-17 09:22] VITALS: BMI 48.2
[2020-05-19 07:42] VITALS: RESP 16; TEMP 98.1
[2020-05-19] MEDS ORDERED: methylPREDNISolone ACETATE 80 MG/ML 1 ML VIAL ONE (08:35)
[2020-05-19] MEDS ORDERED: IOPAMIDOL M200 10 ML VIAL ONE (08:35)
[2020-05-19] MEDS ORDERED: ROPIVACAINE 5MG/ML 20ML VIAL ONE (08:35)
[2020-05-19] MEDS ORDERED: fentaNYL (PF) 50 MCG/ML 2 ML AMP ONE (08:35)
[2020-05-19] MEDS ORDERED: SODIUM CHLORIDE 0.9% (PF) 10 ML VIAL ONE (08:35)
[2020-05-19] MEDS ORDERED: MIDAZOLAM 2 MG/2 ML VIAL ONE (08:35)
--- NOTE | 2020-05-19 08:57 | P.PCN ---
Date of Procedure: 05/19/20 Procedure(s) Performed: PREOPERATIVE DIAGNOSIS: 1- Lumbar radiculopathy 2-Lumbar spondylosis with Facet arthropathy without myelopathy. 3-left sacroiliitis POSTOPERATIVE DIAGNOSIS: 1-Lumber radiculopathy 2-Lumbar spondylosis with Facet arthropathy without myelopathy. 3-left sacroiliitis PROCEDURE 1. Lumbar epidural steroid injection under fluoroscopic guidance at the L5-S1 level. (Fluoroscopy imaging was available in radiology department) 2. Lumbar epidurogram. 3. Left sacroiliac joint steroid injections under fluoroscopy guidance ANESTHESIA: Local with 1% lidocaine 3 ml and , moderate sedation with intravenous Versed 2 mg ,and fentanyle 50 Mcg EBL: Minimal PROCEDURE INDICATION: The patient with low back pain and radiculitis symptoms unresponsive to conservative treatment. Fluoroscopy was used to optimize visualization of the needle placement and to maximize safety. PROCEDURE DESCRIPTION / TECHNIQUE: The patient was seen and identified in the preoperative area. Risks, benefits, complications including but not limited to infections ,bleeding ,allergic reaction to the medications ,nerve damage and not complete pain releife , and alternatives were discussed with the patient. The patient agreed to proceed with the procedure and signed the consent. IV was started, and vital signs were stable. Patient was taken to the OR and time out was completed. The patient was placed in the prone position on procedure table and a pillow was placed under the abdomen to reduce lumbar lordosis. The lumbosacral area was prepped and draped in the usual sterile fashion.ere closely monitored during the procedure. Conscious sedation was used during the procedure to decrease patients anxiety. Vital signs was monitered during the entire procedure. Using anterior-posterior fluoroscopy, the L5-S1 interlaminar space was identified and the skin over this site was marked and then infiltrated with 1% lidocaine subcutaneously. Subsequently, a 18-gauge 6 inches long Tuohy epidural needle was inserted and advanced toward the epidural space using the ``Loss of resistance technique and guided by AP and lateral fluoroscopy. The correct needle position in the epidural space was verified with the injection of 2 mL of the water soluble contrast dye Isovue 200 contrast and observing an excellent epidurogram with the epidural spread of the dye, after negative aspiration for blood and CSF and in the absence of paresthesias. Again after negative aspiratio n, a 6 ml mixture containing 40 mg of Depo-medrol , and 2 ml of preservative free Normal Saline, and 2 ml of preservative free lidocaine 1% solution was injected and a washout of epidurogram was seen. Needle was withdrawn intact, Then after that the left sacroiliac joint injection done under sterile technique by advancing 22-gauge Quincke-type needle at the inferior border of the left sacroiliac joint, negative placement confirmed under fluoroscopy and after negative aspiration ropivacaine 0.5% 4 ml , and 40 mg Depo-Medrol injected in the left sacroiliac joint after negative aspiration patient tolerated the procedure well without any complication COMPLICATIONS: None DISPOSITION / PLANS: The patient was placed in a supine position and transferred to the recovery area in a stable condition for observation. There was no evidence of lower extremity motor or sensory deficit after the procedure. Patient was discharged from the recovery room after meeting discharge criteria. Home discharge instructions were given to the patient by the staff. The patient was reexamined prior to discharge. The patient will schedule a follow up in the clinic in 2-4 weeks.
[2020-05-19] MEDS ORDERED: IV FLUID CONTINUATION 850 ML IV ONE (09:03)
[2020-05-19 09:26] VITALS: BP 111/72; PULSE 90
--- NOTE | 2020-05-19 10:55 | FL ---
EXAMINATION TYPE: FL guided pain mgmt statistic DATE OF EXAM: 05/19/2020 HISTORY: Fluoroscopy time 7 seconds of fluoroscopy provided. IMPRESSION: 1. Fluoroscopy time.
== END 2020-05-19 09:39 | disposition home or self-care (01) ==
LOC: ORPAIN 07:04
PROVIDERS: ATTEND Specialist
DX: M47.26 Other spondylosis with radiculopathy, lumbar region (principal); M46.1 Sacroiliitis, not elsewhere classified; Z90.710 Acquired absence of both cervix and uterus; Z88.8 Allergy status to other drugs, medicaments and biological substances; Z91.09 Other allergy status, other than to drugs and biological substances
CPT/HCPCS: 62323; 27096; J2250; J1040; J3010; Q9966; J2795; 99152

== ENCOUNTER → 2020-08-01 | Outpatient (CLI) | payer BC ==
--- NOTE | 2020-08-01 14:11 | CT ---
EXAMINATION TYPE: CT abdomen pelvis wo con DATE OF EXAM: 08/01/2020 HISTORY: RLQ pain CT DLP: 2647.1 mGycm. Automated Exposure Control for Dose Reduction was Utilized. TECHNIQUE: CT scan of the abdomen and pelvis is performed without oral or IV contrast. COMPARISON: NONE FINDINGS: Within the limitations of a non-contrast study, the following observations are made. LUNG BASES: Slightly elevated right hemidiaphragm with mild to moderate bibasilar linear scarring and /or atelectasis. LIVER/GB: Visualized liver is heterogeneously hypodense consistent with marked fatty infiltration. Tw o intraluminal calcified gallstones in contracted gallbladder . No surrounding inflammatory change. PANCREAS: No significant abnormality is seen. SPLEEN: No significant abnormality is seen. ADRENALS: No significant abnormality is seen. KIDNEYS: No renal stones or hydronephrosis is present bilaterally. BOWEL: No suspicious small or large bowel dilatation. Terminal ileum noted best seen sagittal image 4 5. Fecal filled terminal ileum consistent with delayed passage of ingested material to colonic level. Visualized portion of the appendix is unremarkable sagittal image 43. Appendix is small in length wi thout surrounding inflammatory change. GENITAL ORGANS: Uterus is surgically absent. LYMPH NODES: No greater than 1cm abdominal or pelvic lymph nodes are appreciated. OSSEOUS STRUCTURES: Posterior interpedicular rods and screws transfix L4-S1 levels. There is slight g rade 1 anterolisthesis L4 on L5. There is moderate disc space narrowing and vacuum disc phenomenon at L2-L3 level. There is posterior nonspecific thin wall fluid collection probable seroma over the lowe r lumbar spine. OTHER: No significant additional abnormality is seen. IMPRESSION: No acute findings are identified.
== END | disposition home or self-care (01) ==
LOC: RADCTMAIN 13:00
PROVIDERS: ATTEND Nurse Practitioner Adult Health
DX: R10.31 Right lower quadrant pain (principal)
CPT/HCPCS: 74176

== ENCOUNTER → 2021-10-17 | Outpatient (CLI) | payer OTHER ==
--- NOTE | 2021-10-17 14:15 | US ---
EXAMINATION TYPE: US thyroid st tissue head/neck DATE OF EXAM: 10/17/2021 COMPARISON: NONE CLINICAL HISTORY: R09.89 sx involving circ and resp system. Pt states feeling a lump in throat, pt st ates family history of thyroid issues GLAND SIZE: Right Lobe: 4.3 x 1.5 x 1.4 cm Overall Parenchyma: homogenous Left Lobe: 4.2 x 1.5 x 1.2 cm Overall Parenchyma: homogeneous Isthmus Thickness: 0.3 cm NODULES RIGHT: # of nodules measured on right: 1 Multiple nodules, largest measured 1. 0.5 X 0.5 x 0.4 cm, mid, cystic or almost completely cystic, hypoechoic nodule, which is wider t pino tall, with smooth margins, without echogenic foci. Prior size: No prior LEFT: # of nodules measured on left: 1 Multiple nodules, largest measured 1. 0.7 X 0.5 x 0.6 cm, upper, solid or almost completely solid, hypoechoic nodule, which is wider t pino tall, with smooth margins, without echogenic foci. Prior size: No prior Bilateral neck scanned, no evidence of lymphadenopathy. Multiple sub-centimeter nodules bilaterally, largest on each lobe measured. Homogeneous normal-sized thyroid with scattered small nodules. No suspicious greater than 1.0 cm joaquin d nodules are seen. IMPRESSION: As above
== END | disposition home or self-care (01) ==
LOC: RADUSWWP 12:36
PROVIDERS: ATTEND Family Medicine
DX: E04.2 Nontoxic multinodular goiter (principal)
CPT/HCPCS: 76536

== ENCOUNTER → 2022-05-23 | Outpatient (CLI) | payer OTHER ==
--- NOTE | 2022-05-24 09:26 | MM ---
Reason for Exam: Screening (asymptomatic). Last mammogram was performed 2 year(s) and 4 month(s) ago. Patient History: Menarche at age 14. Patient has no children. Postmenopausal. Hormonal Contraceptives for 6 months. Maternal grandmother had breast cancer. Risk Values: Mami 5 year model risk: 1.5%. NCI Lifetime model risk: 8.3%. Prior Study Comparison: 08/16/2017 Bilateral Screening Mammogram, [facility]. 08/18/2018 Bilateral Screening Mammogram, [facility]. 01/25/2020 Bilateral Screening Mammogram, [facility]. Tissue Density: There are scattered fibroglandular densities. Findings: Analyzed By CAD. There is no suspicious group of microcalcifications or new suspicious mass in either breast. No significant change from prior exams. Overall Assessment: Negative, BI-RAD 1 Management: Screening Mammogram of both breasts in 1 year. A clinical breast exam by your physician is recommended on an annual basis and results should be correlated with mammographic findings. Electronically signed and approved by: Ulices Agrawal D.O.
== END | disposition home or self-care (01) ==
LOC: RADMAMWWP 16:16
PROVIDERS: ATTEND Family Medicine
DX: Z12.31 Encounter for screening mammogram for malignant neoplasm of breast (principal); Z78.0 Asymptomatic menopausal state; Z80.3 Family history of malignant neoplasm of breast
CPT/HCPCS: 77067

== ENCOUNTER → 2023-01-22 | Outpatient (CLI) | payer OTHER ==
--- NOTE | 2023-01-22 09:56 | CT ---
EXAMINATION TYPE: CT forearm LT wo con DATE OF EXAM: 01/22/2023 COMPARISON: None. HISTORY: pain and discoloration in proximal elbow CT DLP: 290.3 mGycm Automated exposure control for dose reduction was used. FINDINGS: No acute fracture or dislocation in the radius or ulna. No suspicious bony destruction is evident. Th ere is moderate spurring at the elbow joint. There is advanced narrowing at the base of the first met acarpal with bony spurring. There is moderate to advanced triscaphe joint space narrowing. Muscle bulk in the left forearm is preserved. There is focal mild to moderate ill-defined subcutaneou s edema over the olecranon. No well-formed fluid collection or abscess seen. IMPRESSION: As above.
== END | disposition home or self-care (01) ==
LOC: RADCTMAIN 07:31
PROVIDERS: ATTEND Family Medicine
DX: R22.32 Localized swelling, mass and lump, left upper limb (principal)

== ENCOUNTER → 2023-08-20 | Outpatient (CLI) | payer OTHER ==
--- NOTE | 2023-08-21 08:54 | MM ---
Reason for Exam: Screening (asymptomatic). Last mammogram was performed 1 year(s) and 3 month(s) ago. Patient History: Menarche at age 14. Patient has no children. Hysterectomy at age 53. Postmenopausal. Hormonal Contraceptives for 6 months. Maternal grandmother had breast cancer. Risk Values: Mami 5 year model risk: 1.6%. NCI Lifetime model risk: 7.9%. Prior Study Comparison: 08/18/2018 Bilateral Screening Mammogram, [facility]. 01/25/2020 Bilateral Screening Mammogram, [facility]. 05/23/2022 Bilateral MG screening mammo w CAD, [facility]. Tissue Density: There are scattered fibroglandular densities. Findings: Analyzed By CAD. There is no suspicious group of microcalcifications or new suspicious mass. Overall Assessment: Negative, BI-RAD 1 Management: Screening Mammogram of both breasts in [address] [facility] will attempt to contact patient to return for supplemental views and ultrasound if indicated. Patient should continue monthly self-breast exams. A clinical breast exam by your physician is recommended on an annual basis. This exam should not preclude additional follow-up of suspicious palpable abnormalities. Note on Mami scores and lifetime risk: 1. A Mami score greater than 3% is considered moderate risk. If this is the case, consider specialist referral to assess eligibility for a risk reducing agent. 2. If overall lifetime risk for the development of breast cancer is 20% or higher, the patient may qualify for future screening with alternating mammogram and breast MRI. Electronically signed and approved by: Rashid Ruth DO
== END | disposition home or self-care (01) ==
LOC: RADMAMWWP 07:06
PROVIDERS: ATTEND Family Medicine
DX: Z12.31 Encounter for screening mammogram for malignant neoplasm of breast (principal); Z80.3 Family history of malignant neoplasm of breast; Z78.0 Asymptomatic menopausal state
CPT/HCPCS: 77063; 77067

== ENCOUNTER → 2024-07-27 | Outpatient (CLI) | payer MEDICARE, OTHER ==
--- NOTE | 2024-07-28 09:02 | MM ---
Reason for Exam: Screening (asymptomatic). Last screening mammogram was performed 11 month(s) ago. Patient History: Menarche at age 14. Patient has no children. Hysterectomy at age 53. Postmenopausal. Hormonal Contraceptives for 6 months. Maternal grandmother had breast cancer, age 55. Risk Values: Mami 5 year model risk: 1.7%. NCI Lifetime model risk: 7.7%. Prior Study Comparison: 01/25/2020 Bilateral Screening Mammogram, [facility]. 05/23/2022 Bilateral MG screening mammo w CAD, [facility]. 08/20/2023 Bilateral MG 3D screening mammo w/cad, [facility]. Tissue Density: There are scattered areas of fibroglandular density. Findings: Analyzed By CAD. The pattern is symmetrical. Chronic nodularity is similar to the. Few nodules in bilateral breasts appear stable. No suspicious groups of microcalcifications, spiculated or lobular masses, architectural distortion or other secondary signs of malignancy are mammographically apparent. Overall Assessment: Benign, BI-RAD 2 Management: Screening Mammogram of both breasts in 1 year. A negative mammogram report should not preclude additional follow up of suspicious palpable abnormalities. Patient should continue monthly self breast exam. A clinical breast exam by your physician is recommended on an annual basis and results should be correlated with mammographic findings. Note on Mami scores and lifetime risk: 1. A Mami score greater than 3% is considered moderate risk. If this is the case, consider specialist referral to assess eligibility for a risk reducing agent. 2. If overall lifetime risk for the development of breast cancer is 20% or higher, the patient may qualify for future screening with alternating mammogram and breast MRI. [facility], , 07/28/2024 8:59 AM. Electronically signed and approved by: Vazquez Wilson D.O. Radiologis
== END | disposition home or self-care (01) ==
LOC: RADMAMWWP 15:45
PROVIDERS: ATTEND Family Medicine
DX: Z12.31 Encounter for screening mammogram for malignant neoplasm of breast (principal); R92.323 Mammographic fibroglandular density, bilateral breasts; Z78.0 Asymptomatic menopausal state; Z80.3 Family history of malignant neoplasm of breast
CPT/HCPCS: 77067

== ENCOUNTER 2024-12-02 07:47 | Day surgery (SDC) | payer MEDICARE, OTHER ==
[2024-12-01 09:24] VITALS: BMI 46.5
[2024-12-02] MEDS: IV FLUID CONTINUATION 1,000 ML IV ONE (08:10)
[2024-12-02 08:36] VITALS: TEMP 97.8
[2024-12-02] MEDS ORDERED: PROPOFOL 10 MG/ML 20 ML VIAL IV ONE (08:40)
[2024-12-02] MEDS ORDERED: LIDOCAINE 1% INJ 10MG/ML (20 ML MDV) ONE (08:40)
[2024-12-02 08:43] LABS: Glucose,Whole Blood 97 mg/dL (70-110)
--- NOTE | 2024-12-02 09:10 | P.PCN ---
Date of Procedure: 12/02/24 Procedure(s) Performed: Brief history: Patient is a pleasant scheduled for an elective upper endoscopy as well as colonoscopy as a part of evaluation of GERD and screening for colon cancer Procedure performed: Esophagogastroduodenoscopy with biopsy Colonoscopy with snare polypectomy Preoperative diagnosis: GERD Screening for colon cancer [place]est[place]: [facility] [place]: After informed consent was obtained from the patient was brought into the endoscopy unit and IV sedation was administered by anesthesia under continuous monitoring. Initially upper endoscopy was done. The Olympus GF 160 video endoscope was inserted inserted into the mouth and esophagus intubated without any difficulty and was gradually advanced into the stomach and duodenum and carefully examined. The bulb and second part of the duodenum appeared normal. The scope was then withdrawn into the stomach adequately insufflated with air and upon careful examination the antrum and body and my diffuse gastritis and biopsies were done from this area. Mucosa, cardia and fundus appeared normal. The scope was then withdrawn into the esophagus. The GE junction was located at 40 cm to the incisors. It appeared regular with no erythema erosions or ulcerations. There was a 2 mm island of Davis's appearing mucosa just proximal to the GE junction that was biopsied. Rest of the esophagus appeared normal. Patient tolerated the procedure well. At this time the patient continued to remain sedation. Initial digital rectal examination was normal. Olympus CF 160 video colonoscope was then inserted into the rectum and gradually advanced to the cecum without any difficulty. Careful examination was performed as the scope was gradually being withdrawn. The prep was excellent. The cecum, had a 1 cm flat polyp removed by snare polypectomy. Rest of the ascending colon, transverse colon, appeared normal. The descending colon was another 1 cm flat polyp removed by cold snare polypectomy. In the sigmoid colon there was a 5 mm polyp removed by cold snare polypectomy. Scattered left-sided diverticulosis seen. Rest of the descending colon, sigmoid colon and rectum appeared normal. Retroflexion was performed in the rectum and no lesions were noted. Patient tolerated the procedure well. Impression: 1. Upper endoscopy revealed mild antral gastritis in the short segment Davis's esophagus, s/p biopsy 2. Colonoscopy revealed 1 cm cecal polyp status post snare polypectomy 1 cm descending colon polyp status post snare polypectomy 5 mm sigmoid colon polyp status post snare Recommendations: Findings of this examination were discussed with the patient as well as her family. She was advised to follow-up with the biopsy results. Continue current medications and follow antireflux measures. If the biopsy of the colon polyps reveals adenoma she can have repeat colonoscopy in 3 years.
[2024-12-02 09:36] VITALS: BP 146/80; PULSE 77; RESP 14
== END 2024-12-02 09:48 | disposition home or self-care (01) ==
LOC: ORWHC2ENDO 07:47
PROVIDERS: ATTEND Internal Medicine Gastroenterology
DX: Z12.11 Encounter for screening for malignant neoplasm of colon (principal); D12.0 Benign neoplasm of cecum; D12.4 Benign neoplasm of descending colon; D12.5 Benign neoplasm of sigmoid colon; K57.30 Diverticulosis of large intestine without perforation or abscess without bleeding; K21.00 Gastro-esophageal reflux disease with esophagitis, without bleeding; K29.50 Unspecified chronic gastritis without bleeding; K22.70 Barrett's esophagus without dysplasia; I10 Essential (primary) hypertension; E11.9 Type 2 diabetes mellitus without complications; G47.33 Obstructive sleep apnea (adult) (pediatric); J44.9 Chronic obstructive pulmonary disease, unspecified; Z79.84 Long term (current) use of oral hypoglycemic drugs; Z79.51 Long term (current) use of inhaled steroids; Z79.899 Other long term (current) drug therapy; Z91.048 Other nonmedicinal substance allergy status; Z88.8 Allergy status to other drugs, medicaments and biological substances
CPT/HCPCS: 45385; 43239; J2003; J2704; 88305